=== PATIENT | female | born 1995 | race Caucasian/White ===

== ENCOUNTER 2020-10-12 10:14 | Observation (INO) | payer OTHER ==
[~2020-10-12] VITALS: Ht 152.4 cm; Wt 67.1 kg
[~2020-10-12 10:14] MED LIST: ARNU1INH; LEVO75TA4; LIDOCAINE 1% MDV 20ML VIAL SQ PRN; LIDOCAINE 2% 100MG/5ML SDV (FOR ANES.) As Ordered ONE; MIDAZOLAM INJ 2MG/2ML VIAL (J2250 PER 1MG) As Ordered ONE; ONDANSETRON 4MG/2ML VIAL As Ordered ONE; ROCURONIUM BROMIDE 50 MG/5 ML VIAL As Ordered ONE; TRAZ-252; dexameTHASONE 4 MG/ML 1ML VIAL (J1100 PER 1MG) As Ordered ONE; fentaNYL 250 MCG/5 ML INJECTION (J3010) As Ordered ONE; propofoL 200 MG/20 ML VIAL As Ordered ONE
[2020-10-12] MEDS ORDERED: LR 1,000 ML IV ONE (10:55)
[2020-10-12] MEDS ORDERED: ceFAZolin SOD 1 GM in D5W MINI-BAG PLUS 50 ML IV ONE (10:55)
[2020-10-12] MEDS ORDERED: BUPIVACAINE LIPOSOME/PF 1.3% 20ML VIAL (13.3MG/ML)(EXPAREL)(C9290 PER1MG) As Ordered ONE (11:07)
[2020-10-12] MEDS ORDERED: ceFAZolin 1GM VIAL (J0690 PER 500MG) As Ordered ONE (11:08)
--- NOTE | 2020-10-12 15:06 | POST-OPPD ---
Postoperative Procedure Note Date Of Procedure: Oct 12, 2020 PREOPERATIVE DIAGNOSIS Bilateral breast hypertrophy POSTOPERATIVE DIAGNOSIS: same FINDINGS: Large breast PROCEDURE: Bilateral breast reduction SURGEON: Dr Marcano SMALL BUSINESS CONSULTANT: none SPECIMENS: right breast 407 gm, left breast 395 gm ESTIMATED BLOOD LOSS: 75 cc ANESTHESIA: General REPLACED: none DRAINS: 10 mm RAQUEL x 2 COMPLICATIONS: none POSTOPERATIVE CONDITION: stable TRUPTI MARCANO DO Oct 12, 2020 15:06
--- NOTE | 2020-10-12 15:06 | ROOPDOC ---
[facility] Report Of Operation Report of Operation DATE OF PROCEDURE: 10/12/20 PREOPERATIVE DIAGNOSIS Bilateral breast hypertrophy POSTOPERATIVE DIAGNOSIS: same FINDINGS: Large breast PROCEDURE: Bilateral breast reduction SURGEON: Dr Marcano MANAGER OUTPATIENT: none SPECIMENS: right breast 407 gm, left breast 395 gm ESTIMATED BLOOD LOSS: 75 cc ANESTHESIA: General REPLACED: none DRAINS: 10 mm RAQUEL x 2 COMPLICATIONS: none POSTOPERATIVE CONDITION: stable DESCRIPTION OF PROCEDURE: This is a 24-year-old female who upper back and neck pain worsened by large breasts. She is scheduled for bilateral breast reduction. Risks, benefits, and alternatives were discussed with the patient in detail, and she is ready to proceed. The day of surgery, she was marked in the upright position and informed consent was obtained. She measures 28 cm from sternal notch to nipple on both sides, IMF at 21 cm bilaterally. She was brought into the operating room and placed in the supine position. Preoperative antibiotics and 5000 units heparin subcutaneous were given. Sequential pneumatic stocking were placed on the lower calves. General anesthesia was induced. She was prepped and draped in the usual sterile fashion. We started our procedure on the right side. Her nipple areolar complex was outlined 42 mm in diameter, and the patient was marked according superior medial pedicle, pedicle length 10 cm and 9 cm wide. We started our incision by scoring the nipple areolar complex area, and then dissection was continued until the inferior lateral portion of the breast was resected. Hemostasis was obtained using electrocautery. The pedicle was de-epithelialized using Romero scissors, good perfusion to the nipple at all times. Wound was irrigated with Ancef solution. We used Exparel 6 cc for local anesthesia to infiltrate in the Pectoralis muscle as well as the breast tissue. Than, pedicle was turned superior to its new location at 21 cm from sternal notch. The mound was re- created using conforming 0 Vicryl sutures. Pillars were closed with interrupted 3-0 Monocryl sutures. The vertical limb was 7 cm. Excess tissue inferiorly was measured and resected, creating the horizontal scar. Nipple area complex was brought into view through the new opening and sutured in place with 3-0 and 4-0 Monocryl sutures and a 5-0 plain. A 10 mm Donnell-Velazco drain was placed through the lateral portion of the horizontal incision. Then we turned our attention to the left side. Her nipple areolar complex was outlined 42 mm in diameter, and the patient was marked according superior medial pedicle, it was measured 10 cm length and 9 cm wide. We started our incision by scoring the nipple areolar complex area, and then dissection was continued until the inferior lateral portion of the breast was resected. Hemostasis was obtained using electrocautery. The pedicle was de-epithelialized using Romero scissors, good perfusion to the nipple at all times. Wound was irrigated with Ancef solution. We used Exparel 6 cc for local anesthesia to infiltrate in the Pectoralis muscle as well as the breast tissue. Than, pedicle was turned superior to its new location at 21 cm from sternal notch. The mound was re- created using conforming 0 Vicryl sutures. Pillars were closed with interrupted 3-0 Monocryl sutures. The vertical limb was 7 cm. Excess tissue inferiorly was measured and resected, creating the horizontal scar. Nipple area complex was brought into view through the new opening and sutured in place with 3-0 and 4-0 Monocryl sutures and a 5-0 plain. A 10 mm Donnell-Velazco drain was placed through the lateral portion of the horizontal incision. Remaining Exparel injected in the horizontal incision. Total Exparel use 20 cc. Resected tissue sent to pathology in two specimens right and left breast tissue. Right breast 407 grams, left breast 395 grams. Dressings were applied to vertical and horizontal incision: Prinio strips and Dermabond. Nipples areolar complex: Xeroform and a bulky dressing with a surgical bra. Patient was extubated in the operating room without difficulty and was transferred to the recovery room in stable condition. TRUPTI MARCANO DO Oct 12, 2020 15:06
[2020-10-12] MEDS ORDERED: ACETAMINOPHEN TAB 650MG DOSE (2X325MG) PO PRN (15:10)
[2020-10-12] MEDS ORDERED: fentaNYL 100 MCG/2 ML INJECTION (J3010) IV PRN (15:10)
[2020-10-12] MEDS ORDERED: ONDANSETRON 4MG/2ML VIAL IV PRN ×2 (15:10)
[2020-10-12] MEDS ORDERED: LR 1,000 ML IV SCH (15:10)
[2020-10-12] MEDS ORDERED: oxyCODONE 5MG TAB PO PRN (15:10)
[2020-10-12] MEDS: LR 1,000 ML IV SCH ×2 (15:10→22:25)
[2020-10-12] MEDS: HYDROMORPHONE HCL 0.5 MG/ 0.5 ML SYRINGE (J1170 PER 1) IV PRN ×2 (15:18→15:25)
[2020-10-12 15:55] VITALS: BP 152/87
[2020-10-12 16:25] VITALS: BP 123/81
[2020-10-12 16:55] VITALS: BP 120/80
[2020-10-12 17:55] VITALS: BP 120/76
[2020-10-12] MEDS: KETOROLAC TROMETHAMINE 10 MG TAB PO PRN (18:10)
[2020-10-12 18:55] VITALS: BP 109/71
[2020-10-12] MEDS: PERCOCET 5MG/325MG TAB PO PRN (19:49)
[2020-10-12] MEDS: ceFAZolin SOD 1 GM in D5W MINI-BAG PLUS 50 ML IV SCH (20:36)
[2020-10-12 22:00] VITALS: BP 110/73
[2020-10-13] MEDS: ceFAZolin SOD 1 GM in D5W MINI-BAG PLUS 50 ML IV SCH (05:24)
[2020-10-13] MEDS: PERCOCET 5MG/325MG TAB PO PRN (05:35)
[2020-10-13 06:00] VITALS: BP 112/73
[2020-10-13] MEDS ORDERED: LEVOTHYROXINE 75MCG TABLET (0.075MG) PO SCH (06:00)
--- NOTE | 2020-10-13 09:18 | IPNPDOC ---
Subjective General Date Seen: Oct 13, 2020 Subject Chief Complaint/History The patient is a 24-year-old female admitted with a reason for visit of Bilateral Breast Hypertrophy. Patient is s/p BBR POD 1. Doing well. Ambulating, pain controlled with Percocet, tolerating diet. Current Medications Current Medications Current Medications Medications (Trade) Dose Ordered Sig/Gilberto Route PRN Reason Start Time Stop Time Status Last Admin Dose Admin Acetaminophen (Tylenol Tab) 650 mg Q6H PRN PO MILD PAIN (PS 1-4) 10/12/20 15:10 Cefazolin Sodium 1 gm/Dextrose 50 ml @ 100 mls/hr Q8H IV 10/12/20 21:00 10/13/20 05:24 Fentanyl Citrate (Sublimaze) 25 mcg Q5MP PRN IV PAIN LEVEL 5-10 10/12/20 15:10 10/12/20 17:10 DC Hydromorphone HCl (Dilaudid) 0.2 mg Q5MP PRN IV PAIN LEVEL 4-7 10/12/20 15:10 10/12/20 17:10 DC 10/12/20 15:25 Ketorolac Tromethamine (ToRADol) 10 mg Q6HP PRN PO MODERATE PAIN (PS 5-7) 10/12/20 15:10 10/17/20 15:09 10/12/20 18:10 Lactated Ringer's 1,000 ml @ 75 mls/hr [id number] IV 10/12/20 15:10 10/12/20 22:25 Lactated Ringer's 1,000 ml @ 100 mls/hr Q10H IV 10/12/20 15:10 10/12/20 17:10 DC Levothyroxine Sodium (Synthroid) 75 mcg DAILY@0600 PO 10/13/20 06:00 10/13/20 05:24 Lidocaine HCl (LIDOCAINE 1% MDV 20ml) 0.1 ml ONCE PRN SQ DISCOMFORT BEFORE IV START 10/12/20 06:00 10/12/20 15:04 DC Ondansetron HCl (ZOFRAN INJection) 4 mg Q4H PRN IV NAUSEA OR VOMITING 10/12/20 15:10 Ondansetron HCl (ZOFRAN INJection) 4 mg Q4HP PRN IV NAUSEA OR VOMITING 10/12/20 15:10 10/12/20 17:10 DC Oxycodone HCl (Roxicodone, Oxyir) 5 mg ASDIRECTED PRN PO PAIN LEVEL 1-4 10/12/20 15:10 10/12/20 17:10 DC Oxycodone/ Acetaminophen (Percocet 5mg/ 325mg Tablet) 2 tab Q4HP PRN PO SEVERE PAIN (PS 8-10) 10/12/20 15:10 10/13/20 05:35 Allergies Coded Allergies: fluoxetine (Verified Allergy, Mild, hives, 10/12/20) kiwi (Verified Allergy, Mild, hives, 10/12/20) strawberry (Verified Allergy, Mild, HIVES, 10/12/20) bupropion (Verified Adverse Reaction, Severe, seizure, 10/12/20) Objective Physical Examination Examination GENERAL APPEARANCE:Patient seen, laying in bed, awake, alert, and oriented. Comfortable, in no acute distress. SKIN: Warm and moist. BREAST: Right and left soft, non-tender incisions intact. RAQUEL drains: 25/30 cc/24 hr. NAC: Viable, warm, symmetrical, mild post-op ecchymosis, no expanding hematoma. LUNGS: Clear to auscultation bilaterally. No wheezing appreciated. HEART: No chest wall abnormalities. Regular rate and rhythm with no murmurs appreciated. ABDOMEN: Abdomen is soft, non-tender, non-distended. EXTREMITIES: No edema identified. No calf tenderness. Vital Signs Vital Signs Date Time Temp Pulse Resp B/P (MAP) Pulse Ox O2 Delivery O2 Flow Rate FiO2 10/13/20 06:13 18 10/13/20 06:00 97.7 69 112/73 (86) 97 Room Air I&Os I&O- Last 24 Hours up to 6 AM 10/13/20 06:00 Intake Total 1446 ml Output Total 755 ml Balance 691 ml Impression Status post breast reduction. Stable for discharge. Dressings changed today, continue monitoring RAQUEL drains. Follow-up with plastic surgery after discharge. Instructions given to the patient. Plan / VTE VTE Prophylaxis Ordered?: Yes TRUPTI MARCANO DO Oct 13, 2020 09:18
[2020-10-13] MEDS ORDERED: PERCOCET PO (09:22)
[2020-10-13] MEDS: KETOROLAC TROMETHAMINE 10 MG TAB PO PRN (09:41)
== END 2020-10-13 12:10 | disposition home or self-care (01) ==
LOC: M SDC 10:14 → M MS5PR 15:06
PROVIDERS: ADMIT Plastic Surgery Surgery of the Hand; ATTEND Plastic Surgery Surgery of the Hand
DX: N62 Hypertrophy of breast (principal); J45.909 Unspecified asthma, uncomplicated; F41.9 Anxiety disorder, unspecified; F32.9 Major depressive disorder, single episode, unspecified; F17.218 Nicotine dependence, cigarettes, with other nicotine-induced disorders; F12.10 Cannabis abuse, uncomplicated; Z88.8 Allergy status to other drugs, medicaments and biological substances; Z91.018 Allergy to other foods; Z79.899 Other long term (current) drug therapy
CPT/HCPCS: 19318; 81025; 88305; 96361; 96365; 96366; C9290; J0690; J1100; J1170; J2250; J2405; J3010